=== PATIENT | female | born 1980 | race Caucasian/White ===

== ENCOUNTER 2019-11-05 04:16 | Inpatient (IN) ==
[2019-11-05 04:49] LABS: Basophils % 0.4 %; Immature Granulocytes % 0.2 % (0-4); Lymphocytes % 24.1 %; Mean Platelet Volume 8.5 fL (9.4-12.4); Red Cell Distribution Width 19.3 % (11.5-14.5)
[2019-11-05 04:50] LABS: Eosinophils # 0.2 K/mcL (0.0-0.6); Hematocrit 33.6 % (35.3-44.9); Hemoglobin 9.5 g/dL (11.5-15.4); Lymphocytes # 2.2 K/mcL (0.6-4.6); Mean Corpuscular HGB Conc 28.3 g/dL (31.6-35.5); Mean Corpuscular Hemoglobin 20.7 pg (28.0-33.3); Monocytes # 0.6 K/mcL (0.0-1.3); Monocytes % 6.7 %; Neutrophils # 6.2 K/mcL (1.6-8.9); Platelet Count 472 K/mcL (140-400); Segmented Neutrophils % 66.6 %; White Blood Count 9.3 K/mcL (4.3-11.1)
[2019-11-05 04:54] LABS: Bilirubin,Urine Negative (Negative); Blood,Urine Large (Negative); Clarity,Urine Cloudy (Clear); Color,Urine Dark Yellow (Yellow); Glucose,Urine (UA) Normal (Normal); Ketones,Urine Trace mg/dL (Negative); Leukocyte Esterase,Urine Negative (Negative); Nitrite,Urine Negative (Negative); Protein,Urine 30 mg/dL (Neg-Trace); Specific Gravity,Urine > 1.030 (1.010-1.025); Urobilinogen,Urine Normal (Normal)
[2019-11-05 04:56] LABS: Bacteria,Urine Few per hpf (None-Few); Hyaline Casts,Urine Moderate per lpf (None-Few); RBC,Urine 0-3 per hpf (0-3); Squamous Epithelial Cell,Urine Many per lpf (None-Few)
[2019-11-05 05:03] LABS: Mucus,Urine Many per lpf (Few)
[2019-11-05 05:04] LABS: Anisocytosis 1+ (Not Present)
[2019-11-05 05:05] LABS: Microcytosis Present (Not Present); Platelet Estimate Increased (Normal)
[2019-11-05 05:05] LABS: Amphetamine Screen,Urine Negative ng/mL (Cutoff=1000); Barbiturate Screen,Urine Negative ng/mL (Cutoff=200); Benzodiazepines Screen,Urine Negative ng/mL (Cutoff=200); Cannabinoid Screen,Urine Negative ng/mL (Cutoff = 50); Cocaine Screen,Urine Negative ng/mL (Cutoff= 300); Opiate Screen,Urine Negative ng/mL (Cutoff=300); Phencyclidine Screen,Urine Negative ng/mL (Cutoff=25)
[2019-11-05] MEDS ORDERED: Isovue-370 500 ML BOTTLE IVP ONE (05:06)
[2019-11-05 05:09] LABS: Acetaminophen < 10 mcg/mL (10-20); BUN/Creatinine Ratio 22 (6-26); Blood Urea Nitrogen 14 mg/dL (6-20); Calcium 8.9 mg/dL (8.6-10.3); Carbon Dioxide 25 mEq/L (23-29); Chloride 106 mEq/L (98-107); Ethanol < 10 mg/dL (Less than 10); Glucose 117 mg/dL (70-105); Osmolality,Calculated 288 (280-300); Potassium 3.8 mEq/L (3.5-5.1); Salicylate < 2.5 mg/dL (15.0-30.0); Sodium 138 mEq/L (136-145); eGFR For African Americans > 60 (> 60); eGFR For Non-African Americans > 60 (> 60)
[2019-11-05] MEDS ORDERED: *HR* LORazepam 1 MG TABLET PO PRN (06:54)
[2019-11-05] MEDS ORDERED: Mag Hydrox/Al Hydrox/Simeth 30 ML UDC PO PRN (06:54)
[2019-11-05] MEDS ORDERED: haloperidoL 5 MG TABLET PO PRN (06:54)
[2019-11-05] MEDS ORDERED: Acetaminophen 325 MG TABLET PO PRN (06:54)
[2019-11-05] MEDS ORDERED: MOM Conc 10 ML UD.LIQ PO PRN (06:54)
[2019-11-05] MEDS ORDERED: Haloperidol Lactate 5 MG/ML VIAL IM PRN (06:54)
[2019-11-05] MEDS ORDERED: *HR* LORazepam 2 MG/ML VIAL IM PRN (06:54)
[2019-11-05 10:49] LABS: Chol/HDL Ratio 4.2 (0-4.9); Cholesterol 140 mg/dL (< 200); HDL Cholesterol 33 mg/dL (40-59); LDL Cholesterol,Calculated 90 mg/dL (0-99); Triglycerides 86 mg/dL (< 150)
[2019-11-05 11:26] LABS: Estimated Average Glucose 128 mg/dl
[2019-11-05] MEDS: Nicotine 21 MG PATCH.TD24 TD SCH (12:19)
[2019-11-05] MEDS: lamoTRIgine 100 MG TABLET PO SCH ×2 (12:19→20:17)
[2019-11-05] MEDS: Lurasidone 20 MG TABLET PO SCH (16:59)
[2019-11-05] MEDS: traZODone 50 MG TABLET PO PRN (20:16)
[2019-11-05] MEDS: hydrOXYzine pamoate 25 MG CAPSULE PO PRN (20:17)
[2019-11-06] MEDS: hydrOXYzine pamoate 25 MG CAPSULE PO PRN (01:20)
[2019-11-06] MEDS: traZODone 50 MG TABLET PO PRN (01:20)
[2019-11-06] MEDS: lamoTRIgine 100 MG TABLET PO SCH ×2 (08:34→20:49)
[2019-11-06] MEDS: Nicotine 21 MG PATCH.TD24 TD SCH (08:35)
[2019-11-06] MEDS: Lurasidone 20 MG TABLET PO SCH (16:59)
[2019-11-07] MEDS: Nicotine 21 MG PATCH.TD24 TD SCH (09:59)
[2019-11-07] MEDS: lamoTRIgine 100 MG TABLET PO SCH ×2 (09:59→20:35)
[2019-11-08] MEDS: Nicotine 21 MG PATCH.TD24 TD SCH (08:20)
[2019-11-08] MEDS: lamoTRIgine 100 MG TABLET PO SCH (08:21)
[2019-11-08 08:43] VITALS: BP 124/78
== END 2019-11-08 14:45 | disposition home or self-care (01) | DRG 885 ==
LOC: EMEROOARM 04:16 → 1ANU 04:16 → SUATTDRO 06:52 → 1ANU 07:27
PROVIDERS: ADMIT Psychiatry & Neurology Psychiatry; ATTEND Psychiatry & Neurology Psychiatry

== ENCOUNTER 2019-12-08 19:49 | Inpatient (IN) ==
[2019-12-08] MEDS ORDERED: 0.9 % Sodium Chloride 1,000 ML IVC ONE (20:13)
[2019-12-08 21:01] LABS: Basophils # 0.1 K/mcL (0.0-0.2); Basophils % 0.4 %; Eosinophils # 0.4 K/mcL (0.0-0.6); Eosinophils % 3.1 %; Hematocrit 32.6 % (35.3-44.9); Hemoglobin 9.5 g/dL (11.5-15.4); Immature Granulocytes % 0.6 % (0-4); Lymphocytes # 2.9 K/mcL (0.6-4.6); Lymphocytes % 21.4 %; Mean Corpuscular HGB Conc 29.1 g/dL (31.6-35.5); Mean Corpuscular Hemoglobin 21.7 pg (28.0-33.3); Mean Corpuscular Volume 74.4 fL (83.0-100.0); Mean Platelet Volume 8.5 fL (9.4-12.4); Monocytes # 0.7 K/mcL (0.0-1.3); Monocytes % 5.3 %; Neutrophils # 9.3 K/mcL (1.6-8.9); Platelet Count 463 K/mcL (140-400); Prothrombin Time 11.5 Seconds (9.4-12.1); Red Blood Count 4.38 M/mcL (3.82-4.97); Red Cell Distribution Width 19.2 % (11.5-14.5); Segmented Neutrophils % 69.2 %; White Blood Count 13.5 K/mcL (4.3-11.1)
[2019-12-08 21:04] LABS: Activated Partial Thrombo Time 36.9 Seconds (26.0-36.0)
[2019-12-08 21:17] LABS: Acetaminophen < 10 mcg/mL (10-20); Alanine Aminotransferase 18 Units/L (7-52); Albumin 4.1 g/dL (3.5-5.7); Albumin/Globulin Ratio 1.1 (1.1-2.2); Alkaline Phosphatase 80 Units/L (34-104); Aspartate Amino Transferase 16 Units/L (13-39); BUN/Creatinine Ratio 30 (6-26); Bilirubin,Indirect 0.1 mg/dL (0.0-1.0); Bilirubin,Total 0.1 mg/dL (0.3-1.0); Blood Urea Nitrogen 18 mg/dL (6-20); Calcium 8.8 mg/dL (8.6-10.3); Carbon Dioxide 24 mEq/L (23-29); Chloride 102 mEq/L (98-107); Ethanol < 10 mg/dL (Less than 10); Globulin 3.7 g/dL (2.4-3.5); Glucose 108 mg/dL (70-105); Osmolality,Calculated 278 (280-300); Potassium 3.8 mEq/L (3.5-5.1); Salicylate < 2.5 mg/dL (15.0-30.0); Sodium 133 mEq/L (136-145); Total Protein 7.8 g/dL (6.4-8.9); eGFR For African Americans > 60 (> 60); eGFR For Non-African Americans > 60 (> 60)
[2019-12-08 21:18] LABS: Polychromasia 1+ (Not Present)
[2019-12-09] MEDS ORDERED: haloperidoL 5 MG TABLET PO PRN (00:34)
[2019-12-09] MEDS ORDERED: Mag Hydrox/Al Hydrox/Simeth 30 ML UDC PO PRN (00:34)
[2019-12-09] MEDS ORDERED: MOM Conc 10 ML UD.LIQ PO PRN (00:34)
[2019-12-09] MEDS ORDERED: Acetaminophen 325 MG TABLET PO PRN (00:34)
[2019-12-09] MEDS ORDERED: *HR* LORazepam 2 MG/ML VIAL IM PRN (00:34)
[2019-12-09] MEDS ORDERED: *HR* LORazepam 1 MG TABLET PO PRN (00:34)
[2019-12-09] MEDS ORDERED: Haloperidol Lactate 5 MG/ML VIAL IM PRN (00:34)
[2019-12-09] MEDS: lamoTRIgine 100 MG TABLET PO SCH ×3 (00:57→20:40)
[2019-12-09] MEDS: traZODone 50 MG TABLET PO PRN (00:59)
[2019-12-09 12:47] LABS: Bilirubin,Urine Negative (Negative); Blood,Urine Large (Negative); Clarity,Urine Clear (Clear); Color,Urine Yellow (Yellow); Glucose,Urine (UA) Normal (Normal); Ketones,Urine Negative (Negative); Leukocyte Esterase,Urine Negative (Negative); Nitrite,Urine Negative (Negative); PH,Urine 5.5 pH Units (5.0-8.0); Protein,Urine Negative (Neg-Trace); Specific Gravity,Urine 1.021 (1.010-1.025); Urobilinogen,Urine Normal (Normal)
[2019-12-09 12:49] LABS: Bacteria,Urine None Seen per hpf (None-Few); Hyaline Casts,Urine None Seen per lpf (None-Few); Squamous Epithelial Cell,Urine Many per lpf (None-Few); WBC,Urine 0-3 per hpf (0-3)
[2019-12-09 12:58] LABS: Amphetamine Screen,Urine Negative ng/mL (Cutoff=1000); Barbiturate Screen,Urine Negative ng/mL (Cutoff=200); Benzodiazepines Screen,Urine Negative ng/mL (Cutoff=200); Cannabinoid Screen,Urine Negative ng/mL (Cutoff = 50); Cocaine Screen,Urine Negative ng/mL (Cutoff= 300); Opiate Screen,Urine Negative ng/mL (Cutoff=300); Phencyclidine Screen,Urine Negative ng/mL (Cutoff=25)
[2019-12-10] MEDS: lamoTRIgine 100 MG TABLET PO SCH ×2 (08:53→21:11)
[2019-12-10] MEDS: ARIPiprazole 5 MG TABLET PO SCH (21:11)
[2019-12-11] MEDS: hydrOXYzine pamoate 25 MG CAPSULE PO PRN (01:52)
[2019-12-11] MEDS: traZODone 50 MG TABLET PO PRN (01:52)
[2019-12-11] MEDS: lamoTRIgine 100 MG TABLET PO SCH ×2 (09:45→23:59)
[2019-12-11] MEDS: ARIPiprazole 5 MG TABLET PO SCH (23:58)
[2019-12-12] MEDS: lamoTRIgine 100 MG TABLET PO SCH ×2 (09:04→20:48)
[2019-12-12] MEDS: ARIPiprazole 5 MG TABLET PO SCH (20:48)
[2019-12-12] MEDS: traZODone 50 MG TABLET PO PRN (20:49)
[2019-12-12] MEDS: hydrOXYzine pamoate 25 MG CAPSULE PO PRN (20:49)
[2019-12-13] MEDS: lamoTRIgine 100 MG TABLET PO SCH ×2 (12:06→20:25)
[2019-12-13] MEDS: Nicotine 14 MG PATCH.TD24 TD SCH (12:08)
[2019-12-13] MEDS: hydrOXYzine pamoate 25 MG CAPSULE PO PRN (20:26)
[2019-12-13] MEDS: ARIPiprazole 5 MG TABLET PO SCH (20:26)
[2019-12-14] MEDS: Nicotine 14 MG PATCH.TD24 TD SCH (09:22)
[2019-12-14] MEDS: lamoTRIgine 100 MG TABLET PO SCH ×2 (09:22→20:45)
[2019-12-14] MEDS: traZODone 50 MG TABLET PO PRN (20:45)
[2019-12-14] MEDS: ARIPiprazole 5 MG TABLET PO SCH (20:45)
[2019-12-14] MEDS: hydrOXYzine pamoate 25 MG CAPSULE PO PRN (20:45)
[2019-12-15] MEDS: lamoTRIgine 100 MG TABLET PO SCH ×2 (09:44→21:51)
[2019-12-15] MEDS: Nicotine 14 MG PATCH.TD24 TD SCH (09:45)
[2019-12-15] MEDS: ARIPiprazole 5 MG TABLET PO SCH (21:51)
[2019-12-16] MEDS: lamoTRIgine 100 MG TABLET PO SCH ×2 (09:54→21:01)
[2019-12-16] MEDS: Nicotine 14 MG PATCH.TD24 TD SCH (17:04)
[2019-12-16] MEDS: ARIPiprazole 5 MG TABLET PO SCH (21:01)
[2019-12-17] MEDS: lamoTRIgine 100 MG TABLET PO SCH ×2 (09:16→20:28)
[2019-12-17] MEDS: Nicotine 14 MG PATCH.TD24 TD SCH (09:17)
[2019-12-17] MEDS: traZODone 50 MG TABLET PO PRN (20:28)
[2019-12-17] MEDS: hydrOXYzine pamoate 25 MG CAPSULE PO PRN (20:29)
[2019-12-17] MEDS: ARIPiprazole 10 MG TABLET PO SCH (20:29)
[2019-12-18] MEDS: Nicotine 14 MG PATCH.TD24 TD SCH (08:52)
[2019-12-18] MEDS: lamoTRIgine 100 MG TABLET PO SCH ×2 (08:54→20:40)
[2019-12-18] MEDS: traZODone 50 MG TABLET PO PRN (20:40)
[2019-12-18] MEDS: hydrOXYzine pamoate 25 MG CAPSULE PO PRN (20:41)
[2019-12-18] MEDS: ARIPiprazole 10 MG TABLET PO SCH (20:41)
[2019-12-19] MEDS: Nicotine 14 MG PATCH.TD24 TD SCH (08:54)
[2019-12-19] MEDS: lamoTRIgine 100 MG TABLET PO SCH ×2 (08:56→20:56)
[2019-12-19] MEDS: ARIPiprazole 10 MG TABLET PO SCH (20:55)
[2019-12-19] MEDS: traZODone 50 MG TABLET PO PRN (20:55)
[2019-12-19] MEDS: hydrOXYzine pamoate 25 MG CAPSULE PO PRN (20:56)
[2019-12-20] MEDS: Nicotine 14 MG PATCH.TD24 TD SCH (09:18)
[2019-12-20] MEDS: lamoTRIgine 100 MG TABLET PO SCH ×2 (09:19→20:45)
[2019-12-20] MEDS ORDERED: Haloperidol Lactate 5 MG/ML VIAL IM PRN (14:36)
[2019-12-20] MEDS ORDERED: *HR* LORazepam 2 MG/ML VIAL IM PRN (14:37)
[2019-12-20] MEDS: hydrOXYzine pamoate 25 MG CAPSULE PO PRN (20:45)
[2019-12-20] MEDS: ARIPiprazole 10 MG TABLET PO SCH (20:45)
[2019-12-20] MEDS: traZODone 50 MG TABLET PO PRN (20:45)
[2019-12-21] MEDS: lamoTRIgine 100 MG TABLET PO SCH ×3 (08:45→21:09)
[2019-12-21] MEDS: Nicotine 14 MG PATCH.TD24 TD SCH (08:46)
[2019-12-21] MEDS: Multivit/Ca/Min/Fe/FA 1 TAB TABLET PO SCH (11:40)
[2019-12-21] MEDS ORDERED: (Aripiprazole [Abilify Maintena] 400 MG) IM PRN (19:00)
[2019-12-21] MEDS ORDERED: ARIPiprazole 5 MG TABLET PO SCH (21:00)
[2019-12-21] MEDS: ARIPiprazole 10 MG TABLET PO SCH (21:10)
[2019-12-22] MEDS: Multivit/Ca/Min/Fe/FA 1 TAB TABLET PO SCH (08:59)
[2019-12-22] MEDS: lamoTRIgine 100 MG TABLET PO SCH ×2 (08:59→21:11)
[2019-12-22] MEDS: Nicotine 14 MG PATCH.TD24 TD SCH (09:00)
[2019-12-22] MEDS: ARIPiprazole 10 MG TABLET PO SCH (21:10)
[2019-12-23] MEDS: Multivit/Ca/Min/Fe/FA 1 TAB TABLET PO SCH (09:35)
[2019-12-23] MEDS: lamoTRIgine 100 MG TABLET PO SCH ×2 (09:35→20:26)
[2019-12-23] MEDS: Nicotine 14 MG PATCH.TD24 TD SCH (09:36)
[2019-12-23] MEDS: ARIPiprazole 5 MG TABLET PO SCH (20:27)
[2019-12-23] MEDS: ARIPiprazole 10 MG TABLET PO SCH (20:27)
[2019-12-24] MEDS: lamoTRIgine 100 MG TABLET PO SCH ×2 (09:45→21:16)
[2019-12-24] MEDS: Nicotine 14 MG PATCH.TD24 TD SCH (09:46)
[2019-12-24] MEDS: Multivit/Ca/Min/Fe/FA 1 TAB TABLET PO SCH (09:46)
[2019-12-24] MEDS: traZODone 50 MG TABLET PO PRN (21:16)
[2019-12-24] MEDS: ARIPiprazole 10 MG TABLET PO SCH (21:16)
[2019-12-24] MEDS: hydrOXYzine pamoate 25 MG CAPSULE PO PRN (21:16)
[2019-12-24] MEDS: ARIPiprazole 5 MG TABLET PO SCH (21:17)
[2019-12-25] MEDS: Nicotine 14 MG PATCH.TD24 TD SCH (10:19)
[2019-12-25] MEDS: Multivit/Ca/Min/Fe/FA 1 TAB TABLET PO SCH (10:20)
[2019-12-25] MEDS: lamoTRIgine 100 MG TABLET PO SCH ×2 (10:20→21:44)
[2019-12-25] MEDS: traZODone 50 MG TABLET PO PRN (21:43)
[2019-12-25] MEDS: ARIPiprazole 10 MG TABLET PO SCH (21:43)
[2019-12-25] MEDS: ARIPiprazole 5 MG TABLET PO SCH (21:44)
[2019-12-25] MEDS: hydrOXYzine pamoate 25 MG CAPSULE PO PRN (21:44)
[2019-12-26] MEDS: lamoTRIgine 100 MG TABLET PO SCH (09:09)
[2019-12-26] MEDS: Multivit/Ca/Min/Fe/FA 1 TAB TABLET PO SCH (09:09)
[2019-12-26] MEDS: Nicotine 14 MG PATCH.TD24 TD SCH (09:10)
[2019-12-26 11:13] VITALS: BP 155/89
== END 2019-12-26 16:20 | disposition other institution (70) | DRG 885 ==
LOC: EMEROOARM 19:49 → 1ANU 12-09 00:31 → SUATTDRO 12-09 00:31 → 1ANU 12-09 00:46
PROVIDERS: ADMIT Psychiatry & Neurology Forensic Psychiatry; ATTEND Psychiatry & Neurology Psychiatry